=== PATIENT | female | born 1970 | race American Indian/Alaskan Native ===

== ENCOUNTER 2016-12-03 15:17 | Emergency (ER) | payer MEDICARE ==
[2016-12-03 20:40] VITALS: BP 140/93
[2016-12-03] MEDS ORDERED: ULTRAM PO ONE (20:43)
[2016-12-03] MEDS ORDERED: VALIUM PO ONE (20:43)
--- NOTE | 2016-12-03 21:47 | Emergency Department Report ---
HPI - General Chief Complaint: Back Pain/Injury Time Seen by Provider: 12/03/16 19:46 - HPI HPI: 46-year-old female presents today with right lower back pain 2 weeks. 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 Patient was seen by primary care provider on November 19 and was prescribed ibuprofen 800 mg and Flexeril 10 mg. Patient denies any symptomatic relief. Denies radiation of pain. Positive for pain worsening with movement. Describes her pain as a 10 out of 10 constant, and twisting, burning pain. Denies burning upon urination, increased urinary frequency or urgency, blood in urine. Denies numbness, weakness, paresthesias. Denies bowel or bladder incontinence. Denies fever, chills, nausea, vomiting, chest pain, shortness of breath, abdominal pain. ED Past Medical Hx - Past Medical History Previous Medical History?: Yes Hx Psychiatric Treatment: Yes (Depression) - Surgical History Past Surgical History?: Yes Hx Cholecystectomy: Yes Hx Appendectomy: Yes - Social History Smoking Status: Current Every Day Smoker Substance Use Type: None - Medications Home Medications: Home Medications Medication Instructions Recorded Confirmed Last Taken Type Acetaminophen/Codeine [Tylenol #3] 1 tab PO Q6H PRN #12 tab 12/03/16 Unknown Rx Methocarbamol [Robaxin TAB] 750 mg PO BID #20 tab 12/03/16 Unknown Rx ED Review of Systems ROS: Stated complaint: BACK PAIN Other details as noted in HPI Constitutional: denies: chills, fever, malaise Eyes: denies: eye pain ENT: denies: ear pain, throat pain, congestion Respiratory: denies: cough, shortness of breath, wheezing Cardiovascular: denies: chest pain, palpitations Endocrine: no symptoms reported Gastrointestinal: denies: abdominal pain, nausea, vomiting Musculoskeletal: back pain Neurological: denies: headache, weakness, numbness, paresthesias Physical Exam - Physical Exam Vital Signs: Vital Signs 12/03/16 12/03/16 17:31 20:36 Temperature 97.7 F 98.0 F Pulse Rate 81 61 Respiratory 17 16 Rate Blood Pressure 118/84 Blood Pressure 140/93 [Left] O2 Sat by Pulse 100 100 Oximetry Physical Exam: GENERAL: The patient is well-developed and well-nourished. Patient is in NAD. HEAD: Normocephalic. Atraumatic. CHEST/LUNGS: Clear to auscultation throughout. HEART/CARDIOVASCULAR: Regular rate and rhythm. ABDOMEN: Abdomen is soft, nontender. No guarding or rebound tenderness. EXTREMITIES: Full range of motion. Peripheral pulses intact. Capillary refill less than 2 seconds. BACK: Full range of motion, but painful. No midline tenderness. Right-sided paraspinal tenderness of lumbar region. No tenderness to palpation of sciatic notch bilaterally. Negative straight leg raise bilaterally. NEURO: Alert and oriented x 3. Normal gait. ED Course Vital Signs 12/03/16 12/03/16 17:31 20:36 Temperature 97.7 F 98.0 F Pulse Rate 81 61 Respiratory 17 16 Rate Blood Pressure 118/84 Blood Pressure 140/93 [Left] O2 Sat by Pulse 100 100 Oximetry ED Medical Decision Making - Lab Data Vital Signs 12/03/16 12/03/16 17:31 20:36 Temperature 97.7 F 98.0 F Pulse Rate 81 61 Respiratory 17 16 Rate Blood Pressure 118/84 Blood Pressure 140/93 [Left] O2 Sat by Pulse 100 100 Oximetry - Medical Decision Making 46-year-old female presents today with right-sided lumbar strain. Patient was given Valium and Toradol and reported symptomatic relief. Patient has been asked to discontinue use of Flexeril as well as ibuprofen due to her history of gastric ulcers. Patient is in no acute distress at this time. She will be discharged home and is encouraged to follow up with a primary care provider. She will be sent home on Robaxin and Tylenol 3 and is encouraged to return to the emergency room for any worsening symptoms. Critical care attestation.: If time is entered above; I have spent that time in minutes in the direct care of this critically ill patient, excluding procedure time. ED Disposition Clinical Impression: Lumbar strain Qualifiers: Encounter type: initial encounter Qualified Code(s): S39.012A - Strain of muscle, fascia and tendon of lower back, initial encounter Disposition: DISCHARGED TO HOME OR SELFCARE Is pt being admited?: No Does the pt Need Aspirin: No Condition: Stable Instructions: Muscle Strain (ED) Additional Instructions: Follow-up with primary care provider. Return to the emergency department if symptoms worsen. Prescriptions: Acetaminophen/Codeine [Tylenol #3] 1 tab PO Q6H PRN #12 tab PRN Reason: Pain Methocarbamol [Robaxin TAB] 750 mg PO BID #20 tab Referrals: PRIMARY CARE, [Primary Care Provider] - 3-5 Days MORRIS CARDONA MD [Staff Physician] - 3-5 Days Forms: Work/School Release Form(ED) Time of Disposition: 21:48
== END 2016-12-03 22:22 | disposition home or self-care (01) ==
LOC: ED 15:17
DX: S39.012A Strain of muscle, fascia and tendon of lower back, initial encounter (principal); F32.9 Major depressive disorder, single episode, unspecified; F17.200 Nicotine dependence, unspecified, uncomplicated; X58.XXXA Exposure to other specified factors, initial encounter; Y93.89 Activity, other specified; Y99.9 Unspecified external cause status; Y92.89 Other specified places as the place of occurrence of the external cause
CPT/HCPCS: 99282